=== PATIENT | male | born 1985 | race Caucasian/White ===

== ENCOUNTER 2022-01-02 08:30 | Emergency (ER) | payer SELFPAY ==
[2022-01-02] MEDS ORDERED: LORazepam 1 MG Tab PO ONE (09:06)
== END 2022-01-02 09:30 | disposition home or self-care (01) ==
LOC: MW.ED 08:30
DX: F10.239 Alcohol dependence with withdrawal, unspecified (principal); Z88.2 Allergy status to sulfonamides
CPT/HCPCS: 99283; 99284; A9270-GY